=== PATIENT | female | born 1935 | race Caucasian/White ===

== ENCOUNTER 2020-08-10 11:21 | Emergency (ER) | payer MEDICARE ==
[~2020-08-10] VITALS: Ht 167.6 cm; Wt 66.7 kg
[~2020-08-10 11:21] MED LIST: AMLODIPINE BESY10 MG PO; ASPIRIN CHEWABL81 MG PO; CARAFATE1 G1 PO; CENTRUM SILVER1 EACH PO; CIPRO500 MG PO; FISH OIL 1,2001 EACH PO; LANSOPRAZOLE30 MG PO; LISINOPRIL-HYDR1 TA1 PO; MIRAPEX1 MG PO; NIASPAN1000 MG PO; PRAVASTATIN SOD10 MG PO
== END 2020-08-10 14:09 | disposition home or self-care (01) ==
LOC: ED 11:21
DX: S00.12XA Contusion of left eyelid and periocular area, initial encounter (principal); S80.212A Abrasion, left knee, initial encounter; M25.561 Pain in right knee; R07.81 Pleurodynia; G62.9 Polyneuropathy, unspecified; Z79.2 Long term (current) use of antibiotics; Z79.899 Other long term (current) drug therapy; Z79.82 Long term (current) use of aspirin; Z90.711 Acquired absence of uterus with remaining cervical stump; Z98.890 Other specified postprocedural states; W01.198A Fall on same level from slipping, tripping and stumbling with subsequent striking against other object, initial encounter; Y93.89 Activity, other specified; Y92.481 Parking lot as the place of occurrence of the external cause; Y99.8 Other external cause status